=== PATIENT | female | born 2000 | race Asian ===

== ENCOUNTER 2022-01-26 12:21 | Outpatient (CLI) | payer OTHER, SELFPAY ==
[2022-01-26 13:43] LABS: HIV 1/2 Ab P24 Ag Result Negative (Negative)
[2022-01-26 13:52] LABS: Hepatitis B Surface Antigen Negative (Negative)
[2022-01-26 14:09] LABS: Hepatitis C Virus Antibody Negative (Negative)
[2022-01-28 10:47] LABS: Rapid Plasma Reagin Non-Reactive (NonReactive)
== END 2022-01-26 12:22 | disposition home or self-care (01) ==
LOC: ANHLAB 12:24
PROVIDERS: PCP Physician Assistant; Visit Provider Obstetrics & Gynecology
DX: A64 Unspecified sexually transmitted disease (principal)
CPT/HCPCS: 36415; 86592; 86703; 86803; 87340; G0432